=== PATIENT | male | born 1955 | race Caucasian/White ===

== ENCOUNTER 2019-01-17 10:10 | Emergency (ER) | payer BC ==
[2019-01-17] MEDS ORDERED: Sodium Chloride 0.9% 10 ML Syringe FLUSH PRN (10:30)
[2019-01-17] MEDS ORDERED: Sodium Chloride 0.9% 2.5 ML Syringe FLUSH PRN (10:30)
--- NOTE | 2019-01-17 10:34 | EDM.PDOC ---
ED HPI GENERAL MEDICAL PROBLEM - General Chief Complaint: ENT Problem Stated Complaint: ALLERGIC REACTION Time Seen by Provider: 01/17/19 10:31 Source of Information: Reports: Patient, Family History Limitations: Reports: No Limitations - History of Present Illness INITIAL COMMENTS - FREE TEXT/NARRATIVE: HISTORY AND PHYSICAL: History of present illness: Patient is a 63-year-old male here with complaint of possible allergic reaction. He states that he had a hip replacement surgery in [place] [address] Glover at [facility]. He had started Celebrex that morning and believes he is having a reaction to this. He states that when he was intubated he was told his tongue was swollen and when extubated him they noticed some blood. Since then he has had swelling on the left side of his neck. He notes some difficulty with swallowing but he is still able to swallow both food and water. Some difficulty with breathing sitting that he feels that there is fluid in his chest and neck. He reports he still feels like his tongue is swollen. He denies any fevers, chills, wheezing, stridor, nausea, vomiting, abdominal pain. Review of systems: As per history of present illness and below otherwise all systems reviewed and negative. Past medical history: As per history of present illness and as reviewed below otherwise noncontributory. Surgical history: As per history of present illness and as reviewed below otherwise noncontributory. Social history: No reported history of drug or alcohol abuse. Family history: As per history of present illness and as reviewed below otherwise noncontributory. Physical exam: General: Patient sitting comfortably in no acute distress and nontoxic appearing HEENT: There is a fluctuant mass on the left side of the neck. No erythema or warmth. Tonsillar pillars appear to be red and bleeding. Atraumatic, normocephalic, pupils reactive, negative for conjunctival pallor or scleral icterus, mucous membranes moist, throat clear, neck supple, nontender, trachea midline. No meningeal signs. Lungs: Clear to auscultation, breath sounds equal bilaterally, chest nontender. Heart: S1S2, regular, negative for clicks, rubs, or overt murmur. Abdomen: Soft, nondistended, nontender. Negative for masses or hepatosplenomegaly. Negative for costovertebral tenderness. No rigidity, rebound , guarding. Pelvis: Stable nontender. Genitourinary: Deferred. Rectal: Deferred. Extremities: Atraumatic, negative for cords or calf pain. Neurovascular unremarkable. Neuro: Awake, alert, oriented. Cranial nerves II through XII unremarkable. Cerebellum unremarkable. Motor and sensory unremarkable throughout. Exam nonfocal. Notes: Patient is maintaining airway, no increased work of breathing or respiratory distress. Discussed with nurse at [facility] who communicated case with Dr. Ross, anesthesiologist. He suggested patient be discharged home with close follow up with ENT. Discussed with Dr. Sutton, ENT at [facility]. He states patient needs to be started on IV antibiotics and IV steroids and transferred to be observed in ICU as he could decompensate quickly. Dr. Schaffer, ED [facility], accepted patient for transfer. Diagnostics: CBC, CMP, CXR, CT soft tissue neck with contrast Therapeutics: IV zosyn IV clindamycin IV solumedrol Prescriptions: Impression: Subcutaneous parapharyngeal air, intubation trauma Plan: Dr. Schaffer accepted patient for transfer to [facility] via ground ambulance. Definitive disposition and diagnosis as appropriate pending reevaluation and review of above. left neck Pain Score (Numeric/FACES): 1 - Related Data Allergies Allergy/AdvReac Type Severity Reaction Status Date / Time No Known Allergies Allergy Verified 01/17/19 10:25 Home Meds: Home Meds Doxylamine Succinate [Sleep Aid] 25 mg PO BEDTIME PRN 06/20/14 [History] Phenytoin Sodium Extended [Dilantin] 100 mg PO BEDTIME 06/20/14 [History] Celecoxib [CeleBREX] 200 mg PO DAILY 01/17/19 [History] Hydrocodone/Acetaminophen [Pulteney 10-325 Tablet] 1 tab PO Q4HR 01/17/19 [History] ED ROS ENT - Review of Systems Review Of Systems: ROS reveals no pertinent complaints other than HPI. ED EXAM, ENT - Physical Exam Exam: See Below (see dictation) Course - Vital Signs Last Recorded V/S: Last Vital Signs Temp 97.4 F 01/17/19 10:21 Pulse 86 01/17/19 10:21 Resp 18 01/17/19 10:21 BP 126/87 01/17/19 10:21 Pulse Ox 94 L 01/17/19 10:21 - Orders/Labs/Meds Orders: Active Orders 24 hr Category Date Time Status Sodium Chloride 0.9% [Saline Flush] Med 01/17/19 10:30 Active 10 ml FLUSH ASDIRECTED PRN Sodium Chloride 0.9% [Saline Flush] Med 01/17/19 10:30 Active 2.5 ml FLUSH ASDIRECTED PRN Saline Lock Insert [OM.PC] Stat Oth 01/17/19 10:29 Ordered Medication Orders Sodium Chloride (Saline Flush) 10 ml FLUSH ASDIRECTED PRN PRN Reason: Keep Vein Open Last Admin: 01/17/19 10:50 Dose: 10 ml Sodium Chloride (Saline Flush) 2.5 ml FLUSH ASDIRECTED PRN PRN Reason: Keep Vein Open Last Admin: 01/17/19 10:49 Dose: 2.5 ml Labs: Laboratory Tests 01/17/19 01/17/19 Range/Units 10:55 10:55 WBC 10.77 (4.0-11.0) K/uL RBC 3.65 L (4.50-5.90) M/uL Hgb 11.7 L (13.0-17.0) g/dL Hct 34.5 L (38.0-50.0) % MCV 94.5 (80.0-98.0) fL MCH 32.1 H (27.0-32.0) pg MCHC 33.9 (31.0-37.0) g/dL RDW Std Deviation 46.1 (28.0-62.0) fl RDW Coeff of Abhishek 13 (11.0-15.0) % Plt Count 221 (150-400) K/uL MPV 10.20 (7.40-12.00) fL Neut % (Auto) 85.1 H (48.0-80.0) % Lymph % (Auto) 7.3 L (16.0-40.0) % Baxter % (Auto) 7.4 (0.0-15.0) % Eos % (Auto) 0.2 (0.0-7.0) % Baso % (Auto) 0.0 (0.0-1.5) % Neut # (Auto) 9.2 H (1.4-5.7) K/uL Lymph # (Auto) 0.8 (0.6-2.4) K/uL Baxter # (Auto) 0.8 (0.0-0.8) K/uL Eos # (Auto) 0.0 (0.0-0.7) K/uL Baso # (Auto) 0.0 (0.0-0.1) K/uL Nucleated RBC % 0.0 /100WBC Nucleated RBCs # 0 K/uL Sodium 136 (136-148) mmol/L Potassium 3.7 (3.5-5.1) mmol/L Chloride 101 (98-107) mmol/L Carbon Dioxide 24.8 (21.0-32.0) mmol/L BUN 13 (7.0-18.0) mg/dL Creatinine 0.8 (0.8-1.3) mg/dL Est Cr Clr Drug Dosing 98.85 mL/min Estimated GFR (MDRD) > 60.0 ml/min Glucose 113 H (74-106) mg/dL Calcium 9.1 (8.5-10.1) mg/dL Total Bilirubin 0.6 (0.2-1.0) mg/dL AST 22 (15-37) IU/L ALT 23 (14-63) IU/L Alkaline Phosphatase 71 (46-116) U/L Total Protein 7.6 (6.4-8.2) g/dL Albumin 3.9 (3.4-5.0) g/dL Globulin 3.7 (2.6-4.0) g/dL Albumin/Globulin Ratio 1.1 (0.9-1.6) Meds: Medications Generic Name Dose Route Start Last Admin Trade Name Freq PRN Reason Stop Dose Admin Sodium Chloride 10 ml 01/17/19 10:30 01/17/19 10:50 Saline Flush FLUSH 10 ml ASDIRECTED PRN Administration Keep Vein Open Sodium Chloride 2.5 ml 01/17/19 10:30 01/17/19 10:49 Saline Flush FLUSH 2.5 ml ASDIRECTED PRN Administration Keep Vein Open Discontinued Medications Generic Name Dose Route Start Last Admin Trade Name Freq PRN Reason Stop Dose Admin Iopamidol 80 ml 01/17/19 12:44 01/17/19 12:45 Isovue Multipack-370 (76%) IVPUSH 01/17/19 12:45 80 ml ONETIME ONE Administration Departure - Departure Time of Disposition: 13:59 Disposition: DC/Tfer to Acute Hospital 02 Condition: Good Clinical Impression: Subcutaneous air, Airway trauma - Discharge Information Referrals: PCP,None [Primary Care Provider] - Forms: ED Department Discharge - My Orders Last 24 Hours: My Active Orders 01/17/19 10:29 Saline Lock Insert [OM.PC] Stat 01/17/19 10:30 Sodium Chloride 0.9% [Saline Flush] 10 ml FLUSH ASDIRECTED PRN Sodium Chloride 0.9% [Saline Flush] 2.5 ml FLUSH ASDIRECTED PRN - Assessment/Plan Last 24 Hours: My Active Orders 01/17/19 10:29 Saline Lock Insert [OM.PC] Stat 01/17/19 10:30 Sodium Chloride 0.9% [Saline Flush] 10 ml FLUSH ASDIRECTED PRN Sodium Chloride 0.9% [Saline Flush] 2.5 ml FLUSH ASDIRECTED PRN
[2019-01-17 11:28] LABS: CHLORIDE,CL 101 mmol/L (98-107); SODIUM,NA 136 mmol/L (136-148)
[2019-01-17] MEDS ORDERED: Iopamidol 755 MG/ML 500 ML Multipack Bottle IVPUSH ONE (12:44)
--- NOTE | 2019-01-17 12:45 | CR ---
EXAMINATION: Two-view chest (PA and Lateral views). HISTORY: Neck mass. FINDINGS: The trachea is midline. Heart is borderline in size. The cardiomediastinal silhouette is within normal limits. No pulmonary infiltrates, effusions or pneumothorax. Aorta is mildly ectatic and tortuous. Osseous structures appear unremarkable. IMPRESSION: No acute cardiopulmonary process.
--- NOTE | 2019-01-17 12:52 | CT ---
EXAMINATION: CT soft tissue neck with contrast HISTORY: Neck mass COMPARISON: None TECHNIQUE: Axial CT imaging obtained through the neck following the administration of 80 mL of Isovue-370 left antecubital fossa. Coronal and sagittal reconstructions obtained. FINDINGS: There is increased soft tissue swelling along the left aspect of the face with a mildly enlarged and heterogeneous left submandibular gland. There is subcutaneous air adjacent to this region extending into the parapharyngeal space on the left. Airways appear open. Mucosal structures otherwise appear grossly symmetric. Jugular veins appear patent. No notable cervical chain lymphadenopathy. Parotid glands are otherwise symmetric. The thyroid appears normal. Paranasal sinuses are clear. The thyroid appears normal. Mastoid air cells and middle ears are clear. Lung apices are clear. Visualized osseous structures appear normal. IMPRESSION: 1. Heterogeneous mildly enlarged left submandibular gland consistent with sialoadenitis. 2. There is adjacent subcutaneous parapharyngeal air tracking along the left aspect of the neck is well. Fasciitis is not excluded. There is however no defined abscess.
[2019-01-17] MEDS ORDERED: methylPREDNISolone Sodium Succinate 125 MG/2 ML SDV IVPUSH ONE (13:51)
[2019-01-17] MEDS ORDERED: Clindamycin Phosphate in D5W 300 MG in Premix Bag 1 BAG IV ONE ×2 (13:51)
[2019-01-17] MEDS ORDERED: Piperacillin/Tazobactam 3.375 GM in Sodium Chloride 0.9% 50 ML IV ONE (13:51)
== END 2019-01-17 15:00 ==
LOC: MW.ED 10:10
DX: T79.7XXA Traumatic subcutaneous emphysema, initial encounter (principal); T88.4XXA Failed or difficult intubation, initial encounter; Z79.899 Other long term (current) drug therapy
CPT/HCPCS: 70491; 71046; 80053; 85025; 96365; 96375; 99285; A4217; J2543; J2930; J3490; J7050; Q9967

== ENCOUNTER 2019-06-29 09:34 | Day surgery (SDC) | payer BC ==
[~2019-06-29 09:34] MED LIST: Lactated Ringers 1,000 ML IV SCH; cefOXitin 2 GM in Premix Bag 1 BAG IV ONE
--- NOTE | 2019-06-29 10:20 | PCM.PREANE ---
Preanesthetic Assessment - Anesthesia/Transfusion/Family Hx Anesthesia History: Prior Anesthesia Reaction Other Type of Anesthesia Reaction Comment: difficult intubation Family History of Anesthesia Reaction: No Transfusion History: No Prior Transfusion(s) Intubation History: History of Difficulty Intubation - Review of Systems General: No Symptoms Pulmonary: No Symptoms Cardiovascular: No Symptoms Gastrointestinal: No Symptoms Neurological: No Symptoms Other: Reports: None - Physical Assessment NPO Status Date: 06/28/19 Height: 5 ft 10 in Weight: 97.976 kg ASA Class: 2 Mental Status: Alert & Oriented x3 Airway Class: Mallampati = 2 Dentition: Reports: Normal Dentition ROM/Head Extension: Full Lungs: Clear to Auscultation, Normal Respiratory Effort Cardiovascular: Regular Rate, Regular Rhythm - Allergies Allergies/Adverse Reactions: Allergies Allergy/AdvReac Type Severity Reaction Status Date / Time No Known Allergies Allergy Verified 06/26/19 07:48 - Blood Blood Available: No - Anesthesia Plan Pre-Op Medication Ordered: None - Acknowledgements Anesthesia Type Planned: General Anesthesia Pt an Appropriate Candidate for the Planned Anesthesia: Yes Alternatives and Risks of Anesthesia Discussed w Pt/Guardian: Yes Pt/Guardian Understands and Agrees with Anesthesia Plan: Yes Additional Comments: PMH: hx seizure disorder, last seizure 20 yr ago, on dilantin PMH: tiva PreAnesthesia Questionnaire HEENT History: Reports: Other (See Below) Other HEENT History: wears glasses, elissa hearing aids Cardiovascular History: Reports: None Respiratory History: Reports: None Gastrointestinal History: Reports: Colon Polyp Genitourinary History: Reports: None Musculoskeletal History: Reports: Fracture, Osteoarthritis Other Musculoskeletal History: hx fx ankle & arm Neurological History: Reports: Seizure Other Neuro History: states last seizure was 20 to 30 years ago, states "back in my drinking days" Psychiatric History: Reports: None Endocrine/Metabolic History: Reports: Obesity/BMI 30+ Hematologic History: Reports: None Immunologic History: Reports: None Oncologic (Cancer) History: Reports: None Dermatologic History: Reports: None - Past Surgical History Head Surgeries/Procedures: Reports: None HEENT Surgical History: Reports: None Cardiovascular Surgical History: Reports: None Respiratory Surgical History: Reports: None GI Surgical History: Reports: Colonoscopy Male Surgical History: Reports: None Endocrine Surgical History: Reports: None Neurological Surgical History: Reports: None Musculoskeletal Surgical History: Reports: Hip Replacement, ORIF Other Musculoskeletal Surgeries/Procedures:: ORIF rt ankle fx, left MARGY Oncologic Surgical History: Reports: None Dermatological Surgical History: Reports: None - SUBSTANCE USE Smoking Status *Q: Never Smoker Tobacco Use Within Last Twelve Months: Other (See Below) Days Per Week of Alcohol Use: 7 Number of Drinks Per Day: 1 Total Drinks Per Week: 7 - HOME MEDS Home Medications: Home Meds Phenytoin Sodium Extended [Dilantin] 3 tab PO BEDTIME 06/20/14 [History] - CURRENT (IN HOUSE) MEDS Current Meds: Current Medications Lactated Ringer's (Ringers, Lactated) 1,000 mls @ 125 mls/hr IV ASDIRECTED NANNETTE Discontinued Medications Cefoxitin Sodium 2 gm/ Premix 50 mls @ 100 mls/hr IV ONETIME ONE Stop: 06/29/19 08:29
[2019-06-29] MEDS ORDERED: Lidocaine 2% 5 ML SDV ONE (10:27)
[2019-06-29] MEDS ORDERED: Propofol 200 MG/20 ML SDV ONE ×2 (10:28→12:24)
[2019-06-29] MEDS ORDERED: cefOXitin 1 GM Vial ONE (10:46)
[2019-06-29] MEDS ORDERED: Sodium Chloride 0.9% 20 ML ONE (10:46)
--- NOTE | 2019-06-29 12:40 | PCM.OPNOTE ---
- General Post-Op/Procedure Note Date of Surgery/Procedure: 06/29/19 Operative Procedure(s): Colonoscopy Pre Op Diagnosis: Change in bowel habits. Personal history of colon polyps. Post-Op Diagnosis: Sigmoid diverticulosis Anesthesia Technique: MAC (ASA II) Primary Surgeon: Almas Shaw Condition: Good Free Text/Narrative:: DICTATION 316358 CPT CODE 30914
[2019-06-29] MEDS ORDERED: Lactated Ringers 1,000 ML IV SCH (12:45)
--- NOTE | 2019-06-29 12:56 | PCM.POSTAN ---
POST ANESTHESIA ASSESSMENT - MENTAL STATUS Mental Status: Alert, Oriented - VITAL SIGNS Vital Signs: Last Vital Signs Temp 97.2 F 06/29/19 09:45 Pulse 55 L 06/29/19 12:51 Resp 18 06/29/19 12:51 BP 100/66 06/29/19 12:51 Pulse Ox 95 06/29/19 12:51 - RESPIRATORY Respiratory Status: Respiratory Rate WNL, Airway Patent, O2 Saturation Stable - CARDIOVASCULAR CV Status: Pulse Rate WNL, Blood Pressure Stable - GASTROINTESTINAL GI Status: No Symptoms - POST OP HYDRATION Hydration Status: Adequate & Stable
--- NOTE | 2019-06-29 12:56 | PCM48HPAN ---
Post Anesthesia Note - EVALUATION WITHIN 48HRS OF ANESTHETIC Vital Signs in Normal Range: Yes Patient Participated in Evaluation: Yes Respiratory Function Stable: Yes Airway Patent: Yes Cardiovascular Function Stable: Yes Hydration Status Stable: Yes Pain Control Satisfactory: Yes Nausea and Vomiting Control Satisfactory: Yes Mental Status Recovered: Yes Vital Signs: Last Vital Signs Temp 97.2 F 06/29/19 09:45 Pulse 55 L 06/29/19 12:51 Resp 18 06/29/19 12:51 BP 100/66 06/29/19 12:51 Pulse Ox 95 06/29/19 12:51
--- NOTE | 2019-06-29 14:14 | OR ---
SURGEON: Almas Shaw M.D. DATE OF PROCEDURE: 06/29/2019 PROCEDURE PERFORMED: Colonoscopy. PRIMARY SURGEON: Almas Shaw M.D. ANESTHESIA: MAC. ASA CLASSIFICATION: II. PREOPERATIVE DIAGNOSES: 1. Personal history of colon polyps. 2. Change in bowel habits. POSTOPERATIVE DIAGNOSIS: Sigmoid diverticulosis. DESCRIPTION OF PROCEDURE: The patient was taken to the endoscopy room and positioned on the endoscopy table in the left lateral decubitus position. Time-out was called for appropriate identification of the patient and procedure. Monitored anesthesia care was provided. The colonoscope was inserted into the rectum and advanced with moderate difficulty to the cecum. The cecum was identified by internal landmarks and external pressure. The colonoscope was retroflexed to visualize the ascending colon from below, then straightened and slowly withdrawn. The cecum, ascending colon, hepatic flexure, transverse colon, splenic flexure, and descending colon showed no tumors, polyps, diverticula, or angiodysplastic changes. There was no evidence of inflammatory bowel disease. The sigmoid colon demonstrates moderate diverticular change. No stricture, spasm, or bleeding was noted. No polyps were encountered in the sigmoid colon. The colonoscope was then withdrawn to the rectum and retroflexed to visualize the anal orifice from above. Again, no tumors or polyps were seen, and there were no acute hemorrhoidal changes. The colonoscope was then straightened, the rectum aspirated, and the colonoscope removed. The patient tolerated the procedure well and was taken to recovery room in stable condition. DANIEL / ALBERTO /[id number]
== END 2019-06-29 13:15 | disposition home or self-care (01) ==
LOC: MW.SDS 09:34
PROVIDERS: ATTEND Surgery
DX: K57.30 Diverticulosis of large intestine without perforation or abscess without bleeding (principal); G47.00 Insomnia, unspecified; Z86.010 Personal history of colon polyps; Z79.899 Other long term (current) drug therapy
CPT/HCPCS: 45378; J0694; J2001; J2704; J7120